=== PATIENT | male | born 1990 | race Caucasian/White ===

== ENCOUNTER 2019-08-28 18:40 | Emergency (ER) | payer OTHER, MEDICAID, SELFPAY ==
[2019-08-28 18:52] VITALS: BP 133/75; PULSE 76; RESP 18; TEMP 36.6; O2SAT 99; BMI 26.6
--- NOTE | 2019-08-28 18:59 | ED_ITS ---
HPI - Chest Pain General Chief Complaint: Chest Pain Stated Complaint: BODY HURTS PAIN SHOULDER BLADE CHEST Time Seen by Provider: 08/28/19 18:59 Mode of arrival: Ambulatory History of Present Illness HPI narrative: Otherwise healthy 29-year-old gentleman who presents with 3 days of increasing dramatic overall fatigue, left lower chest and left upper abdominal pain, loose stools for 3 days. Flushed feeling with myalgias but denies fevers, cough, dysuria. He has had no vomiting. He describes no skin rashes or acute neurologic symptoms. Review of Systems Review of Systems Narrative: Remainder of review of systems is otherwise unremarkable Exam Narrative Exam Narrative: General: Healthy appearing, in no acute distress. Able to give a complete and coherent history. Well-nourished well-developed HEENT: Moist mucous membranes, normal sclera with reactive pupils, Neck: No JVD, supple Respiratory: Lungs are clear to auscultation, no wheezing no rales no rhonchi. Full and symmetrical air movement Cardiac: Regular rate and rhythm no murmurs no bruits Abdomen: Soft, mildly tender in the left upper quadrant but no rebound or guarding good bowel tones, no flank pain Skin: Warm and dry, no rashes Neurologic: Grossly neurologically intact with no obvious asymmetries or abnormalities Extremities: No trauma, well perfused Psych: Cooperative, appropriate insight and affect Initial Vital Signs Initial Vital Signs: Vital Signs Temperature 97.9 F 08/28/19 18:52 Pulse Rate 76 08/28/19 18:52 Respiratory Rate 18 08/28/19 18:52 Blood Pressure 133/75 08/28/19 18:52 Pulse Oximetry 99 08/28/19 18:52 Course Orders Ordered: ED Orders 08/28/19 18:57 EKG-12 Lead Stat 08/28/19 20:03 XR chest 1V Stat 08/28/19 20:12 Complete Blood Count AUTO DIFF Stat Comprehensive Metabolic Panel Stat Lipase Stat Partial Thromboplastin Time Stat Prothrombin Time INR Stat Troponin & CK Cardiac Panel Stat Vital Signs Vital signs: Vital Signs - 8 hr 08/28/19 22:36 Temperature 98.0 F MDM - Chest Pain Medical Records Data Attestation: I reviewed the patient's medical records. Lab Data Attestation: I reviewed the patient's lab results. Result diagrams: 08/28/19 20:12 08/28/19 20:12 Labs: Lab Results 08/28/19 08/28/19 08/28/19 Range/Units 20:12 20:12 20:12 WBC 7.8 (4.5-11.0) X10^3/uL RBC 5.26 (4.5-5.9) X10^6/uL Hgb 15.3 (13.5-17.5) g/dL Hct 44.5 (41-53) % MCV 84.6 (80-100) fL MCH 29.1 (26-34) PG MCHC 34.4 (30-36) % RDW 12.9 (11.6-14.8) % Plt Count 264 (150-400) X10^3/uL Neut % (Auto) 54.9 (50-75) % Lymph % (Auto) 35.5 (25-40) % [place] % (Auto) 4.6 (3-14) % Eos % (Auto) 4.2 H (2-4) % Baso % (Auto) 0.8 (0-2) % Neut # (Auto) 4300 (8135-5231) /uL Lymph # (Auto) 2800 (1461-8718) /uL [place] # (Auto) 400 (0-900) /uL Eos # (Auto) 300 (0-450) /uL Baso # (Auto) 100 (0-100) /uL PT 11.2 (10.1-12.7) SECONDS INR 1.0 (0.9-1.3) APTT 31 (26.4-36.2) SECONDS Sodium 138 (137-145) mmol/L Potassium 4.2 (3.4-5.1) mmol/L Chloride 105 (98-107) mmol/L Carbon Dioxide 26 (22-32) mmol/L BUN 9 (9-20) mg/dL Creatinine 0.67 (0.66-1.25) mg/dL Estimated GFR > 60.0 (>60) mL/min BUN/Creatinine Ratio 13.4 (6-22) Glucose 93 (70-100) mg/dL Calcium 9.1 (8.4-10.2) mg/dL Total Bilirubin 0.2 (0.2-1.3) mg/dL AST 16 L (17-59) IU/L ALT 12 (<50) IU/L Alkaline Phosphatase 71 (38-126) U/L Total Creatine Kinase 58 (55-170) U/L CK-MB (CK-2) TNP CK-MB (CK-2) Rel Index TNP Troponin I < 0.012 (0.01-0.034) ng/mL Total Protein 7.2 (6.3-8.2) g/dL Albumin 4.3 (3.5-5.0) g/dL Globulin 2.9 (1.7-4.1) g/dL Albumin/Globulin Ratio 1.5 (1.0-2.8) Lipase 118 (23-300) U/L Imaging Data Chest x-ray: Radiologist's Impression: IMPRESSION: No acute cardiopulmonary pathology. Dictated by: Galdino Godinez M.D. on 08/28/2019 at 20:56 MDM Narrative Medical decision making narrative: Significant progressive fatigue with myalgias and now loose stools. No evidence of pneumonia, acute coronary syndrome or pancreatitis. Discussed testing for Covid but patient declines as ?it would make him more nervous. He is safe for home discharge at this time. Encouraged him to self quarantine until symptoms are improved. Encouraged him to return should he feel that he is getting worse. Discharge Plan Departure Patient Disposition: Home Clinical Impression: Abdominal pain Qualifiers: Abdominal location: left upper quadrant Qualified Code(s): R10.12 - Left upper quadrant pain Diarrhea Qualifiers: Diarrhea type: unspecified type Qualified Code(s): R19.7 - Diarrhea, unspecified Fatigue Qualifiers: Fatigue type: unspecified Qualified Code(s): R53.83 - Other fatigue Discharge Date/Time: 08/28/19 22:36 Instructions: DI for Abdominal Pain-Adult Activity Restrictions/Additional Instructions: Thank you for coming in today Your chest x-ray does not suggest an acute pneumonia. Your blood work and EKG do not suggest heart attack or heart attack like syndrome. Her blood work is nicely reassuring with no evidence of acute infection, no kidney or liver damage and no significant dehydration. With the significant fatigue and the diarrhea starting the possibility of coronavirus was discussed. You have declined testing at this time. I would still recommend self quarantine and following CDC recommendations listed below. If you find that you are getting worse, please feel free to return to the emergency room and I am happy to re-evaluate CDC Guidelines for home isolation: - Stay away from others - Limit contact with pets and animals: If you must care for a pet, wash your hands before and after interacting with them - Wear a mask if you are sick - Cover your mouth and nose with a tissue when you cough or sneeze. Dispose of tissues in a lined trash can and wash your hands immediately with soap and water for at least 20 seconds. If soap and water are not available, clean hands with alcohol-based hand utilization management rn that contains at least 60% alcohol. - Clean your hands often with soap and water for at least 20 seconds - Avoid touching your eyes, nose and mouth with unwashed hands - Do not share dishes, drinking glasses, cups, eating utensils, towels, or bedding with other people in your home. After using these items, wash them thoroughly with soap and water or put in the industrial engineering. - Clean high-touch surfaces in your isolation area (?sick room? and bathroom) every day; let a caregiver clean and disinfect high-touch surfaces in other areas of the home. Clean the area or item with soap and water or another detergent if it is dirty. Then, use a household disinfectant. Seek medical attention, but call first: - Seek medical care right away if your illness is worsening (for example, if you have difficulty breathing). - Call your doctor before going in: Before going to the doctor?s office or emergency room, call ahead and tell them your symptoms. They will tell you what to do. - If possible, put on a facemask before you enter the building. If you can?t put on a facemask, try to keep a safe distance from other people (at least 6 feet away). This will help protect the people in the office or waiting room. - Follow care instructions from your healthcare provider and local health department: Your local health authorities will give instructions on checking your symptoms and reporting information. Emergency warning signs for COVID-19: - Difficulty breathing or shortness of breath - Persistent pain or pressure in the chest - New confusion or inability to arouse - Bluish lips or face
[2019-08-28 19:26] VITALS: BP 122/70; PULSE 72; RESP 18; O2SAT 99
--- NOTE | 2019-08-28 20:03 | DI.RAD.S_ITS ---
PROCEDURE: XR CHEST 1V INDICATIONS: chest pain TECHNIQUE: One view of the chest was acquired. COMPARISON: None. FINDINGS: Surgical changes and devices: None. Lungs and pleura: Lungs are clear. No pleural effusions or pneumothorax. Mediastinum: Mediastinal contours appear normal. Heart size is normal. Bones and chest wall: No suspicious bony lesions. Overlying soft tissues appear unremarkable. IMPRESSION: No acute cardiopulmonary pathology. Dictated by: Galdino Godinez M.D. on 08/28/2019 at 20:56 Approved by: Galdino Godinez M.D. on 08/28/2019 at 20:56
[2019-08-28 20:23] LABS: Add Manual Diff / Slide Review NO; Basophils Absolute Auto 100 /uL (0-100); Basophils Percent Auto 0.8 % (0-2); Eosinophils Absolute Auto 300 /uL (0-450); Eosinophils Percent Auto 4.2 % (2-4); Hematocrit 44.5 % (41-53); Hemoglobin 15.3 g/dL (13.5-17.5); Lymphocytes Absolute Auto 2800 /uL (1100-4500); Lymphocytes Percent Auto 35.5 % (25-40); Mean Corpuscular HGB Conc 34.4 % (30-36); Mean Corpuscular Hemoglobin 29.1 PG (26-34); Mean Corpuscular Volume 84.6 fL (80-100); Monocytes Absolute Auto 400 /uL (0-900); Monocytes Percent Auto 4.6 % (3-14); Neutrophils Absolute Auto 4300 /uL (1500-7000); Neutrophils Percent Auto 54.9 % (50-75); Platelet Count 264 X10^3/uL (150-400); Red Blood Cell Count 5.26 X10^6/uL (4.5-5.9); Red Cell Distribution Width 12.9 % (11.6-14.8); White Blood Cell Count 7.8 X10^3/uL (4.5-11.0)
[2019-08-28 20:29] LABS: Prothrombin Time 11.2 SECONDS (10.1-12.7)
[2019-08-28 20:31] LABS: PTT Partial Thromboplastin Tim 31 SECONDS (26.4-36.2)
[2019-08-28 20:34] LABS: Alanine Aminotransferase 12 IU/L (<50); Albumin 4.3 g/dL (3.5-5.0); Albumin Globulin Ratio 1.5 (1.0-2.8); Alkaline Phosphatase 71 U/L (38-126); Aspartate Aminotransferase 16 IU/L (17-59); BUN Creatinine Ratio 13.4 (6-22); Bilirubin Total 0.2 mg/dL (0.2-1.3); Blood Urea Nitrogen 9 mg/dL (9-20); Calcium 9.1 mg/dL (8.4-10.2); Carbon Dioxide 26 mmol/L (22-32); Chloride 105 mmol/L (98-107); Creatine Kinase 58 U/L (55-170); Estimated Glomerular Filt Rate > 60.0 mL/min (>60); Globulin 2.9 g/dL (1.7-4.1); Glucose 93 mg/dL (70-100); HEMOLYSIS 20 (0-50); Lipase 118 U/L (23-300); Potassium 4.2 mmol/L (3.4-5.1); Sodium 138 mmol/L (137-145); Total Protein 7.2 g/dL (6.3-8.2)
[2019-08-28 20:46] LABS: Troponin I < 0.012 ng/mL (0.01-0.034)
[2019-08-28 20:58] VITALS: BP 120/73; PULSE 70; RESP 16; O2SAT 98
[2019-08-28 22:12] VITALS: BP 123/78; PULSE 74; RESP 17; O2SAT 98
[2019-08-28 22:36] VITALS: TEMP 36.7
== END 2019-08-28 22:36 | disposition home or self-care (01) ==
PROVIDERS: Emergency Provider Emergency Medicine
DX: R10.12 Left upper quadrant pain (principal); R07.9 Chest pain, unspecified; R19.7 Diarrhea, unspecified; R53.83 Other fatigue
CPT/HCPCS: 36415; 71045; 80053; 82550; 83690; 84484; 85025; 85610; 85730; 93005; 93010; 99284

== ENCOUNTER 2020-04-30 20:24 | Emergency (ER) | payer OTHER, MEDICAID, SELFPAY ==
[2020-04-30 20:25] VITALS: BP 146/81; PULSE 94; RESP 14; TEMP 37; O2SAT 99; BMI 27.9
--- NOTE | 2020-04-30 20:54 | ED.GENADULT ---
HPI - General Adult General Chief complaint: Upper Respiratory Symptoms Stated complaint: weakness, fatigue Time Seen by Provider: 04/30/20 20:28 Source: patient Mode of arrival: Ambulatory Limitations: no limitations History of Present Illness HPI narrative: Patient is a 29-year-old male who was recently seen for urinary issues in an outside facility here for evaluation of body aches and fatigue and cough. Has not tried anything for symptoms. Is not currently on any antibiotics. When he started having the cough today he thought that he should come in to be evaluated. Related Data Allergies Allergy/AdvReac Type Severity Reaction Status Date / Time aspirin Allergy Verified 04/30/20 20:32 ciprofloxacin [From Cipro] Allergy Verified 04/30/20 20:32 metronidazole [From Flagyl] Allergy Verified 04/30/20 20:32 Review of Systems Constitutional Constitutional: Reports fatigue, Denies fever(s) and Reports malaise Cardiovascular Cardiovascular: Denies chest pain and Denies dyspnea Respiratory Respiratory: Reports cough and Denies dyspnea Gastrointestinal Gastrointestinal: Denies abdominal pain, Denies nausea and Denies vomiting Genitourinary Genitourinary: Denies dysuria Genitourinary: Denies dysuria Integumentary/Breasts Skin/Breast: Denies rash Neurologic Neurologic: Denies behavioral changes Psychiatric Psychiatric: Denies behavioral changes Endocrine Endocrine: Reports fatigue Hematologic/Lymphatic On Anticoagulants: No Allergic/Immunologic Allergic/Immunologic: Denies urticaria Patient History Medical History Healthy adult Social History Smoking Status: Unknown if ever smoked Smoking Status: Unknown if ever smoked alcohol intake frequency: holidays/special occasions only Substance Use Type: does not use Exam Initial Vital Signs Initial Vital Signs: Vital Signs Temperature 98.6 F 04/30/20 20:25 Pulse Rate 94 H 04/30/20 20:25 Respiratory Rate 14 04/30/20 20:25 Blood Pressure 146/81 H 04/30/20 20:25 Pulse Oximetry 99 04/30/20 20:25 Const General: cooperative and comfortable Limitations: mental status not altered HENMT Head: normal to inspection and normocephalic Resp Effort & Inspection: normal respiratory effort Auscultation: clear to auscultation bilaterally Cardio Rate: regular rate Rhythm: regular rhythm GI Inspection: non-distended Skin Lesions: no lesions Rashes: no rashes Neuro General: patient alert, patient awake and patient oriented x3 Cognition: normal cognition Speech: speech normal Extrem General: capillary refill normal Psych Appearance: grossly normal and well kempt Course Orders Ordered: ED Orders 04/30/20 20:37 COVID19 Stat Influenza A & B (PCR) Stat Vital Signs Vital signs: Vital Signs - 8 hr 04/30/20 20:25 Temperature 98.6 F Pulse Rate 94 H Respiratory Rate 14 Blood Pressure 146/81 H Pulse Oximetry 99 Medical Decision Making Medical Records Medical records reviewed: Yes I reviewed the patient's medical records. Lab Data Lab results reviewed: Yes I reviewed the patient's lab results. Labs: Lab Results 04/30/20 04/30/20 Range/Units 20:37 20:37 SARS-CoV-2 (PCR) Negative (Negative) Influenza A (RT-PCR) Flu a negative (NEGATIVE) Influenza B (RT-PCR) Flu b negative (NEGATIVE) MDM Narrative Medical decision making narrative: Flu and COVID-19 both negative. Patient's lungs are clear. He is afebrile. No abdominal tenderness. No rashes. No indication for antibiotics. He can take Tylenol/ibuprofen for any body aches. He is given return precautions and follow-up instructions. He expressed understanding and agreement. Discharge Plan Departure Patient Disposition: Home Clinical Impression: Generalized body aches Activity Restrictions/Additional Instructions: Recommend that you contact your primary provider for follow-up. You can take Tylenol and/or ibuprofen for any body aches. Return to the emergency department for any new or worsening symptoms
[2020-04-30 21:18] LABS: COVID19 -Nasal RAPID Negative (Negative)
[2020-04-30 21:21] LABS: Influenza A - CEPHEID Flu A NEGATIVE (NEGATIVE); Influenza B - CEPHEID Flu B NEGATIVE (NEGATIVE)
== END 2020-04-30 21:57 | disposition home or self-care (01) ==
PROVIDERS: Emergency Provider Emergency Medicine
DX: R52 Pain, unspecified (principal); R05 Cough; R53.83 Other fatigue; Z79.82 Long term (current) use of aspirin; Z20.822 Contact with and (suspected) exposure to COVID-19
CPT/HCPCS: 87502; 87635; 99281; 99282; C9803

== ENCOUNTER 2020-09-07 17:51 | Emergency (ER) | payer OTHER, MEDICAID, SELFPAY ==
[2020-09-07 18:32] VITALS: BP 129/72; PULSE 86; RESP 18; TEMP 37.3; O2SAT 99; BMI 29.4
[2020-09-07 19:00] LABS: COVID19 -Nasal RAPID Negative (Negative)
--- NOTE | 2020-09-07 19:34 | ED.URI ---
HPI - URI/Sore Throat General Chief Complaint: Fever Stated Complaint: sore throat, fatigue Time Seen by Provider: 09/07/20 18:15 Source: patient Mode of arrival: Ambulatory Limitations: no limitations History of Present Illness HPI Narrative: 30-year-old otherwise healthy gentleman presents with minor scratchy throat and extreme fatigue requesting COVID testing. He accompanies his 8-year-old son who has similar symptoms that are a bit worse. He denies any change to taste or smell. No cough, dyspnea, palpitations, abdominal pain, vomiting or diarrhea Related Data Allergies Allergy/AdvReac Type Severity Reaction Status Date / Time aspirin Allergy Verified 09/07/20 18:32 ciprofloxacin [From Cipro] Allergy Verified 09/07/20 18:32 metronidazole [From Flagyl] Allergy Verified 09/07/20 18:32 Review of Systems Review of Systems Narrative: Remainder of complete review of systems is otherwise unremarkable except for that included in the HPI. Patient History Medical History Healthy adult Social History Smoking Status: Current every day smoker Smoking Status: Current every day smoker alcohol intake frequency: holidays/special occasions only Substance Use Type: does not use Exam Narrative Exam Narrative: General: Alert appropriate in no acute distress HEENT: No scleral injection, no cervical adenopathy Respiratory: Able to speak in full sentences, no obvious respiratory distress, no wheezing or rhonchi on auscultation Cardiac: Regular rate and rhythm Skin: No obvious rashes, warm and dry Neurologic: Grossly intact no obvious asymmetries or abnormalities Psych: appropriate insight and affect, cooperative Initial Vital Signs Initial Vital Signs: Vital Signs Temperature 99.2 F 09/07/20 18:32 Pulse Rate 86 09/07/20 18:32 Respiratory Rate 18 09/07/20 18:32 Blood Pressure 129/72 09/07/20 18:32 Pulse Oximetry 99 09/07/20 18:32 Course Orders Ordered: ED Orders 09/07/20 18:20 COVID19 -Nasal swab/Pre-Proc Stat Vital Signs Vital signs: Vital Signs - 8 hr 09/07/20 18:32 Temperature 99.2 F Pulse Rate 86 Respiratory Rate 18 Blood Pressure 129/72 Pulse Oximetry 99 MDM - URI/Sore Throat Medical Records Attestation: I reviewed the patient's medical records. Lab Data Labs: Lab Results 09/07/20 Range/Units 18:20 SARS-CoV-2 (PCR) Negative (Negative) MDM Narrative Medical decision making narrative: 30-year-old gentleman with a day of fatigue and mild scratchy throat. He does have a history of seasonal allergies and notes that that may be part of the issue. His COVID testing is negative today. Reassurance is given and he is safe for home discharge Discharge Plan Departure Patient Disposition: Home Clinical Impression: Seasonal allergies Upper respiratory infection Qualifiers: URI type: unspecified viral URI Qualified Code(s): J06.9 - Acute upper respiratory infection, unspecified Instructions: DI for Viral Upper Respiratory Infection -- Adult Activity Restrictions/Additional Instructions: Thank you for coming in today You do not have COVID You may have an upper respiratory infection or your symptoms may be due to seasonal allergies. Either way, your symptoms should improve within the next couple of days. For nausea and vomiting you can use the Zofran/ondansetron tablets that you were sent home with. You feel that you are getting worse please return to the ER. I hope you feel alisia
== END 2020-09-07 19:43 | disposition home or self-care (01) ==
PROVIDERS: Emergency Provider Emergency Medicine
DX: J06.9 Acute upper respiratory infection, unspecified (principal); J30.2 Other seasonal allergic rhinitis; Z20.822 Contact with and (suspected) exposure to COVID-19
CPT/HCPCS: 87635; 99281; 99282; C9803

== ENCOUNTER 2020-10-02 18:24 | Emergency (ER) | payer OTHER, MEDICAID, SELFPAY ==
[2020-10-02 18:54] VITALS: BP 133/75; PULSE 77; RESP 18; TEMP 36.9; O2SAT 100; BMI 30.1
[2020-10-02 19:35] LABS: Bacteria Urine None Seen; RBC Urine None Seen (0-5/HPF); WBC Urine None Seen (0-5/HPF)
[2020-10-02 19:45] LABS: Culture Indicated Urine Cult Not Indicated; Urine Comments Microscopic Normal
--- NOTE | 2020-10-02 21:28 | ED.GENADULT ---
HPI - General Adult General Chief complaint: Urogenital-Male Stated complaint: bladder infection Time Seen by Provider: 10/02/20 21:17 Source: patient and family Mode of arrival: Ambulatory History of Present Illness HPI narrative: Patient is a 30-year-old male here for evaluation of what he thinks is a bladder infection. He states that over the weekend he had generalized body aches. His symptoms seem to have now focused in to his lower abdomen. It does burn when he finishes urinating. He states he has had a kidney stone in the past this does not feel like a kidney stone. Has no back pain. No fevers. No change in bowel habits. Has never had a sexually transmitted infection is not concerned about that currently. He has never had a urinary tract infection in the past. Related Data Allergies Allergy/AdvReac Type Severity Reaction Status Date / Time aspirin Allergy Verified 09/07/20 18:32 ciprofloxacin [From Cipro] Allergy Verified 09/07/20 18:32 metronidazole [From Flagyl] Allergy Verified 09/07/20 18:32 Review of Systems Constitutional Constitutional: Denies fever(s) Gastrointestinal Gastrointestinal: Reports abdominal pain, Denies change in bowel habits, Denies nausea and Denies vomiting Genitourinary Genitourinary: Denies hematuria, Denies difficulty urinating, Reports dysuria, Reports dysuria, Denies testicular pain, Denies urinary frequency, Denies urinary hesitancy and Denies urinary urgency Musculoskeletal Musculoskeletal: Reports system reviewed and no additional complaints, except as documented Integumentary/Breasts Skin/Breast: Denies rash Neurologic Neurologic: Reports system reviewed and no additional complaints, except as documented Hematologic/Lymphatic On Anticoagulants: No Patient History Medical History Healthy adult Social History Smoking Status: Current every day smoker Smoking Status: Current every day smoker alcohol intake frequency: holidays/special occasions only Substance Use Type: does not use Exam Initial Vital Signs Initial Vital Signs: Vital Signs Temperature 98.5 F 10/02/20 18:54 Pulse Rate 77 10/02/20 18:54 Respiratory Rate 18 10/02/20 18:54 Blood Pressure 133/75 10/02/20 18:54 Pulse Oximetry 100 10/02/20 18:54 Const General: cooperative and healthy appearing [facility] Head: normal to inspection Resp Effort & Inspection: normal respiratory effort Cardio Rate: regular rate GI Inspection: normal to inspection Palpation: soft and tender (Slightly tender midline lower abdomen) General: bladder normal to palpation Back/Spine/Pelvis Back: No CVA tenderness Skin General: no rashes or lesions noted Neuro General: patient alert, patient awake and patient oriented x3 Extrem General: normal to inspection Psych Appearance: grossly normal Course Orders Ordered: ED Orders 10/02/20 19:34 Urine Microscopic Stat 10/02/20 21:32 COVID19 -Nasal swab/Pre-Proc Stat 10/02/20 22:00 Basic Metabolic Panel Stat Complete Blood Count AUTO DIFF Stat Vital Signs Vital signs: Vital Signs - 8 hr 10/02/20 22:47 Pulse Rate 73 Respiratory Rate 14 Blood Pressure 120/65 Pulse Oximetry 97 Medical Decision Making Lab Data Lab results reviewed: Yes I reviewed the patient's lab results. Result diagrams: 10/02/20 22:00 10/02/20 22:00 Labs: Lab Results 10/02/20 10/02/20 10/02/20 Range/Units 19:34 21:32 22:00 WBC 8.2 (4.5-11.0) X10^3/uL RBC 5.33 (4.5-5.9) X10^6/uL Hgb 14.9 (13.5-17.5) g/dL Hct 44.9 (41-53) % MCV 84.3 (80-100) fL MCH 27.9 (26-34) PG MCHC 33.1 (30-36) % RDW 13.6 (11.6-14.8) % Plt Count 272 (150-400) X10^3/uL Neut % (Auto) 58.8 (50-75) % Lymph % (Auto) 32.7 (25-40) % [place] % (Auto) 5.4 (3-14) % Eos % (Auto) 2.4 (2-4) % Baso % (Auto) 0.7 (0-2) % Neut # (Auto) 4800 (4717-5578) /uL Lymph # (Auto) 2700 (7936-4827) /uL [place] # (Auto) 400 (0-900) /uL Eos # (Auto) 200 (0-450) /uL Baso # (Auto) 100 (0-100) /uL Sodium (137-145) mmol/L Potassium (3.4-5.1) mmol/L Chloride (98-107) mmol/L Carbon Dioxide (22-32) mmol/L BUN (9-20) mg/dL Creatinine (0.66-1.25) mg/dL Estimated GFR (>60) mL/min BUN/Creatinine Ratio (6-22) Glucose (70-100) mg/dL Calcium (8.4-10.2) mg/dL Urine RBC None seen (0-5/HPF) Urine WBC None seen (0-5/HPF) Urine Bacteria None seen (None) Ur Culture Indicated? Cult not indicated Micro UA Comment Microscopic normal SARS-CoV-2 (PCR) Negative (Negative) 10/02/20 Range/Units 22:00 WBC (4.5-11.0) X10^3/uL RBC (4.5-5.9) X10^6/uL Hgb (13.5-17.5) g/dL Hct (41-53) % MCV (80-100) fL MCH (26-34) PG MCHC (30-36) % RDW (11.6-14.8) % Plt Count (150-400) X10^3/uL Neut % (Auto) (50-75) % Lymph % (Auto) (25-40) % [place] % (Auto) (3-14) % Eos % (Auto) (2-4) % Baso % (Auto) (0-2) % Neut # (Auto) (5168-2808) /uL Lymph # (Auto) (2198-6886) /uL [place] # (Auto) (0-900) /uL Eos # (Auto) (0-450) /uL Baso # (Auto) (0-100) /uL Sodium 139 (137-145) mmol/L Potassium 3.9 (3.4-5.1) mmol/L Chloride 105 (98-107) mmol/L Carbon Dioxide 27 (22-32) mmol/L BUN 10 (9-20) mg/dL Creatinine 0.73 (0.66-1.25) mg/dL Estimated GFR > 60.0 (>60) mL/min BUN/Creatinine Ratio 13.7 (6-22) Glucose 88 (70-100) mg/dL Calcium 8.9 (8.4-10.2) mg/dL Urine RBC (0-5/HPF) Urine WBC (0-5/HPF) Urine Bacteria (None) Ur Culture Indicated? Micro UA Comment SARS-CoV-2 (PCR) (Negative) Urine Dip Bedside Urine Glucose Negative Bedside Urine Bilirubin - Negative Bedside Urine Ketone - Negative Urine Specific [place] 1.030 Bedside Urine Occult Blood +/- Bedside Urine pH 6 Bedside Urine Protein - Negative Bedside Urine Urobilinogen - Negative Bedside Urine Nitrite - Negative Bedside Urine Leukocytes - Negative Esterase Point of care testing: Urine Dip Bedside Urine Glucose Negative Bedside Urine Bilirubin - Negative Bedside Urine Ketone - Negative Urine Specific [place] 1.030 Bedside Urine Occult Blood +/- Bedside Urine pH 6 Bedside Urine Protein - Negative Bedside Urine Urobilinogen - Negative Bedside Urine Nitrite - Negative Bedside Urine Leukocytes - Negative Esterase MDM Narrative Medical decision making narrative: Urinalysis today is not consistent with a urinary tract infection. Labs to include renal function are unremarkable. He is afebrile. Has a very benign abdominal exam. I do have low suspicion for pyelonephritis. Low suspicion for appendicitis. Low suspicion for gallbladder pathology given the location of his discomfort. He does have blood in his urine. Informed her that he needed to talk with his primary doctor regarding this as he is going to need follow-up to make sure that the blood clears. No indication for antibiotics. He was given return precautions. He expressed understanding and agreement. Discharge Plan Departure Patient Disposition: Home Clinical Impression: Hematuria, Abdominal pain Instructions: DI for Abdominal Pain-Adult, DI for Hematuria Activity Restrictions/Additional Instructions: I recommend that you contact your primary doctor as you do need follow-up to make sure that the blood in your urine is resolving. Return to the emergency department for any new or worsening symptoms Referrals: Mateo Carballo MD [Primary Care Provider] -
[2020-10-02 21:59] LABS: COVID19 -Nasal RAPID Negative (Negative)
[2020-10-02 22:09] LABS: Add Manual Diff / Slide Review NO; Basophils Absolute Auto 100 /uL (0-100); Basophils Percent Auto 0.7 % (0-2); Eosinophils Absolute Auto 200 /uL (0-450); Eosinophils Percent Auto 2.4 % (2-4); Hematocrit 44.9 % (41-53); Hemoglobin 14.9 g/dL (13.5-17.5); Lymphocytes Absolute Auto 2700 /uL (1100-4500); Lymphocytes Percent Auto 32.7 % (25-40); Mean Corpuscular HGB Conc 33.1 % (30-36); Mean Corpuscular Hemoglobin 27.9 PG (26-34); Mean Corpuscular Volume 84.3 fL (80-100); Monocytes Absolute Auto 400 /uL (0-900); Monocytes Percent Auto 5.4 % (3-14); Neutrophils Absolute Auto 4800 /uL (1500-7000); Neutrophils Percent Auto 58.8 % (50-75); Platelet Count 272 X10^3/uL (150-400); Red Blood Cell Count 5.33 X10^6/uL (4.5-5.9); Red Cell Distribution Width 13.6 % (11.6-14.8); White Blood Cell Count 8.2 X10^3/uL (4.5-11.0)
[2020-10-02 22:23] LABS: BUN Creatinine Ratio 13.7 (6-22); Blood Urea Nitrogen 10 mg/dL (9-20); Calcium 8.9 mg/dL (8.4-10.2); Carbon Dioxide 27 mmol/L (22-32); Chloride 105 mmol/L (98-107); Estimated Glomerular Filt Rate > 60.0 mL/min (>60); Glucose 88 mg/dL (70-100); HEMOLYSIS < 15 (0-50); Potassium 3.9 mmol/L (3.4-5.1); Sodium 139 mmol/L (137-145)
[2020-10-02 22:47] VITALS: BP 120/65; PULSE 73; RESP 14; O2SAT 97
== END 2020-10-02 22:50 | disposition home or self-care (01) ==
PROVIDERS: Emergency Medicine; Emergency Provider Emergency Medicine; PCP Internal Medicine Geriatric Medicine
DX: R31.9 Hematuria, unspecified (principal); R30.0 Dysuria; R10.30 Lower abdominal pain, unspecified; Z20.822 Contact with and (suspected) exposure to COVID-19
CPT/HCPCS: 36415; 80048; 81003; 81015; 85025; 87635; 99283; C9803

== ENCOUNTER 2020-11-03 16:02 | Emergency (ER) | payer OTHER, MEDICAID, SELFPAY ==
[2020-11-03 16:07] VITALS: BP 134/85; PULSE 81; RESP 18; TEMP 36.5; O2SAT 98; BMI 28.7
[2020-11-03 16:41] LABS: Add Manual Diff / Slide Review NO; Basophils Absolute Auto 0 /uL (0-100); Basophils Percent Auto 0.4 % (0-2); Eosinophils Absolute Auto 200 /uL (0-450); Eosinophils Percent Auto 2.3 % (2-4); Hematocrit 46.6 % (41-53); Hemoglobin 15.5 g/dL (13.5-17.5); Lymphocytes Absolute Auto 2400 /uL (1100-4500); Lymphocytes Percent Auto 28.2 % (25-40); Mean Corpuscular HGB Conc 33.2 % (30-36); Mean Corpuscular Volume 84.5 fL (80-100); Monocytes Absolute Auto 500 /uL (0-900); Monocytes Percent Auto 5.9 % (3-14); Neutrophils Absolute Auto 5500 /uL (1500-7000); Neutrophils Percent Auto 63.2 % (50-75); Platelet Count 297 X10^3/uL (150-400); Red Blood Cell Count 5.51 X10^6/uL (4.5-5.9); Red Cell Distribution Width 13.5 % (11.6-14.8); White Blood Cell Count 8.6 X10^3/uL (4.5-11.0)
[2020-11-03 16:49] LABS: COVID19 -Nasal RAPID Negative (Negative)
[2020-11-03 16:54] LABS: Alanine Aminotransferase 18 IU/L (<50); Albumin 4.5 g/dL (3.5-5.0); Albumin Globulin Ratio 1.6 (1.0-2.8); Alkaline Phosphatase 82 U/L (38-126); Aspartate Aminotransferase 17 IU/L (17-59); BUN Creatinine Ratio 15.1 (6-22); Bilirubin Total 0.3 mg/dL (0.2-1.3); Blood Urea Nitrogen 13 mg/dL (9-20); Calcium 9.3 mg/dL (8.4-10.2); Carbon Dioxide 25 mmol/L (22-32); Chloride 105 mmol/L (98-107); Estimated Glomerular Filt Rate > 60.0 mL/min (>60); Globulin 2.9 g/dL (1.7-4.1); Glucose 97 mg/dL (70-100); HEMOLYSIS < 15 (0-50); Lipase 98 U/L (23-300); Potassium 4.4 mmol/L (3.4-5.1); Sodium 138 mmol/L (137-145); Total Protein 7.4 g/dL (6.3-8.2)
--- NOTE | 2020-11-03 18:05 | ED_ITS ---
HPI - Abdominal Pain General Chief Complaint: Abdominal Pain Stated Complaint: DIARRHEA HEADACHE UNABLE TO EAT STOMACH CRAMPING Time Seen by Provider: 11/03/20 18:02 Source: patient Mode of arrival: Ambulatory Limitations: no limitations Related Data Allergies Allergy/AdvReac Type Severity Reaction Status Date / Time aspirin Allergy Verified 09/07/20 18:32 ciprofloxacin [From Cipro] AdvReac Intermediate Anxiety Verified 11/03/20 16:07 metronidazole [From Flagyl] AdvReac Intermediate Anxiety Verified 11/03/20 16:07 Patient History Medical History Healthy adult Social History Smoking Status: Current every day smoker Smoking Status: Current every day smoker alcohol intake frequency: holidays/special occasions only Substance Use Type: does not use Exam Initial Vital Signs Initial Vital Signs: Vital Signs Temperature 97.7 F 11/03/20 16:07 Pulse Rate 81 11/03/20 16:07 Respiratory Rate 18 11/03/20 16:07 Blood Pressure 134/85 11/03/20 16:07 Pulse Oximetry 98 11/03/20 16:07 Course Orders Ordered: ED Orders 11/03/20 16:18 COVID19 -Nasal swab/Pre-Proc Stat Complete Blood Count AUTO DIFF Stat Comprehensive Metabolic Panel Stat Lipase Stat Vital Signs Vital signs: Vital Signs - 8 hr 11/03/20 16:07 Temperature 97.7 F Pulse Rate 81 Respiratory Rate 18 Blood Pressure 134/85 Pulse Oximetry 98 MDM - Abdominal Pain Lab Data Result diagrams: 11/03/20 16:18 11/03/20 16:18 Labs: Lab Results 11/03/20 11/03/20 11/03/20 Range/Units 16:18 16:18 16:18 WBC 8.6 (4.5-11.0) X10^3/uL RBC 5.51 (4.5-5.9) X10^6/uL Hgb 15.5 (13.5-17.5) g/dL Hct 46.6 (41-53) % MCV 84.5 (80-100) fL MCH 28.0 (26-34) PG MCHC 33.2 (30-36) % RDW 13.5 (11.6-14.8) % Plt Count 297 (150-400) X10^3/uL Neut % (Auto) 63.2 (50-75) % Lymph % (Auto) 28.2 (25-40) % Garrard % (Auto) 5.9 (3-14) % Eos % (Auto) 2.3 (2-4) % Baso % (Auto) 0.4 (0-2) % Neut # (Auto) 5500 (2045-1124) /uL Lymph # (Auto) 2400 (7261-5786) /uL Garrard # (Auto) 500 (0-900) /uL Eos # (Auto) 200 (0-450) /uL Baso # (Auto) 0 (0-100) /uL Sodium 138 (137-145) mmol/L Potassium 4.4 (3.4-5.1) mmol/L Chloride 105 (98-107) mmol/L Carbon Dioxide 25 (22-32) mmol/L BUN 13 (9-20) mg/dL Creatinine 0.86 (0.66-1.25) mg/dL Estimated GFR > 60.0 (>60) mL/min BUN/Creatinine Ratio 15.1 (6-22) Glucose 97 (70-100) mg/dL Calcium 9.3 (8.4-10.2) mg/dL Total Bilirubin 0.3 (0.2-1.3) mg/dL AST 17 (17-59) IU/L ALT 18 (<50) IU/L Alkaline Phosphatase 82 (38-126) U/L Total Protein 7.4 (6.3-8.2) g/dL Albumin 4.5 (3.5-5.0) g/dL Globulin 2.9 (1.7-4.1) g/dL Albumin/Globulin Ratio 1.6 (1.0-2.8) Lipase 98 (23-300) U/L SARS-CoV-2 (PCR) Negative (Negative) Discharge Plan Departure Patient Disposition: Left Without Being Seen Clinical Impression: Patient left after triage
--- NOTE | 2020-11-04 04:22 | ED_ITS ---
HPI - Abdominal Pain General Chief Complaint: Abdominal Pain Stated Complaint: DIARRHEA HEADACHE UNABLE TO EAT STOMACH CRAMPING Time Seen by Provider: 11/03/20 18:02 Source: patient Mode of arrival: Ambulatory Limitations: no limitations Related Data Allergies Allergy/AdvReac Type Severity Reaction Status Date / Time aspirin Allergy Verified 09/07/20 18:32 ciprofloxacin [From Cipro] AdvReac Intermediate Anxiety Verified 11/03/20 16:07 metronidazole [From Flagyl] AdvReac Intermediate Anxiety Verified 11/03/20 16:07 Patient History Medical History Healthy adult Social History Smoking Status: Current every day smoker Smoking Status: Current every day smoker alcohol intake frequency: holidays/special occasions only Substance Use Type: does not use Exam Initial Vital Signs Initial Vital Signs: Vital Signs Temperature 97.7 F 11/03/20 16:07 Pulse Rate 81 11/03/20 16:07 Respiratory Rate 18 11/03/20 16:07 Blood Pressure 134/85 11/03/20 16:07 Pulse Oximetry 98 11/03/20 16:07 MDM - Abdominal Pain Lab Data Result diagrams: 11/03/20 16:18 11/03/20 16:18 Labs: Lab Results 11/03/20 11/03/20 11/03/20 Range/Units 16:18 16:18 16:18 WBC 8.6 (4.5-11.0) X10^3/uL RBC 5.51 (4.5-5.9) X10^6/uL Hgb 15.5 (13.5-17.5) g/dL Hct 46.6 (41-53) % MCV 84.5 (80-100) fL MCH 28.0 (26-34) PG MCHC 33.2 (30-36) % RDW 13.5 (11.6-14.8) % Plt Count 297 (150-400) X10^3/uL Neut % (Auto) 63.2 (50-75) % Lymph % (Auto) 28.2 (25-40) % Merrick % (Auto) 5.9 (3-14) % Eos % (Auto) 2.3 (2-4) % Baso % (Auto) 0.4 (0-2) % Neut # (Auto) 5500 (1514-9500) /uL Lymph # (Auto) 2400 (7374-2438) /uL Merrick # (Auto) 500 (0-900) /uL Eos # (Auto) 200 (0-450) /uL Baso # (Auto) 0 (0-100) /uL Sodium 138 (137-145) mmol/L Potassium 4.4 (3.4-5.1) mmol/L Chloride 105 (98-107) mmol/L Carbon Dioxide 25 (22-32) mmol/L BUN 13 (9-20) mg/dL Creatinine 0.86 (0.66-1.25) mg/dL Estimated GFR > 60.0 (>60) mL/min BUN/Creatinine Ratio 15.1 (6-22) Glucose 97 (70-100) mg/dL Calcium 9.3 (8.4-10.2) mg/dL Total Bilirubin 0.3 (0.2-1.3) mg/dL AST 17 (17-59) IU/L ALT 18 (<50) IU/L Alkaline Phosphatase 82 (38-126) U/L Total Protein 7.4 (6.3-8.2) g/dL Albumin 4.5 (3.5-5.0) g/dL Globulin 2.9 (1.7-4.1) g/dL Albumin/Globulin Ratio 1.6 (1.0-2.8) Lipase 98 (23-300) U/L SARS-CoV-2 (PCR) Negative (Negative) Discharge Plan Departure Patient Disposition: Left Without Being Seen Clinical Impression: Patient left after triage
== END 2020-11-03 19:01 | disposition left against medical advice (07) ==
PROVIDERS: Emergency Medicine; Emergency Provider Emergency Medicine; PCP Internal Medicine Geriatric Medicine
DX: R11.2 Nausea with vomiting, unspecified (principal); R19.7 Diarrhea, unspecified; Z20.822 Contact with and (suspected) exposure to COVID-19
CPT/HCPCS: 36415; 80053; 83690; 85025; 87635; 99283; C9803

== ENCOUNTER 2022-11-23 15:39 | Emergency (ER) | payer OTHER, MEDICAID, SELFPAY ==
[2022-11-23 15:49] VITALS: BP 128/74; PULSE 82; RESP 16; TEMP 36.9; O2SAT 99; BMI 30.8
[2022-11-23 17:32] LABS: Add Manual Diff / Slide Review NO; Basophils Absolute Auto 0 /uL (0-100); Basophils Percent Auto 0.5 % (0-2); Eosinophils Absolute Auto 200 /uL (0-450); Eosinophils Percent Auto 1.6 % (2-4); Hemoglobin 15.7 g/dL (13.5-17.5); Lymphocytes Absolute Auto 2100 /uL (1100-4500); Lymphocytes Percent Auto 21.7 % (25-40); Mean Corpuscular HGB Conc 34.3 % (30-36); Mean Corpuscular Hemoglobin 28.3 PG (26-34); Mean Corpuscular Volume 82.7 fL (80-100); Monocytes Absolute Auto 500 /uL (0-900); Monocytes Percent Auto 5.4 % (3-14); Neutrophils Absolute Auto 6800 /uL (1500-7000); Neutrophils Percent Auto 70.8 % (50-75); Platelet Count 296 X10^3/uL (150-400); Red Blood Cell Count 5.56 X10^6/uL (4.5-5.9); Red Cell Distribution Width 13.4 % (11.6-14.8); White Blood Cell Count 9.6 X10^3/uL (4.5-11.0)
[2022-11-23 17:34] LABS: Alanine Aminotransferase 21 IU/L (<50); Albumin 4.5 g/dL (3.5-5.0); Albumin Globulin Ratio 1.4 (1.0-2.8); Alkaline Phosphatase 88 U/L (38-126); Aspartate Aminotransferase 21 IU/L (17-59); BUN Creatinine Ratio 15.3 (6-22); Bilirubin Total 0.3 mg/dL (0.2-1.3); Blood Urea Nitrogen 11 mg/dL (9-20); Carbon Dioxide 24 mmol/L (22-32); Chloride 105 mmol/L (98-107); Estimated Glomerular Filt Rate > 60 mL/min (>60); Globulin 3.3 g/dL (1.7-4.1); Glucose 94 mg/dL (70-100); HEMOLYSIS 19 (0-50); Lipase 119 U/L (23-300); Potassium 4.2 mmol/L (3.4-5.1); Sodium 137 mmol/L (137-145); Total Protein 7.8 g/dL (6.3-8.2)
== END 2022-11-23 18:37 | disposition left against medical advice (07) ==
PROVIDERS: Emergency Medicine; Emergency Provider Emergency Medicine; PCP Internal Medicine Geriatric Medicine
DX: R10.9 Unspecified abdominal pain (principal)
CPT/HCPCS: 80053; 83690; 85025; 93005; 99281

== ENCOUNTER 2022-12-21 03:58 | Emergency (ER) | payer OTHER, MEDICAID, SELFPAY ==
[2022-12-21] VITALS (11 sets, daily range): BP systolic 122–145; BP diastolic 67–83; PULSE 78–110; RESP 7–21; TEMP 36.6; O2SAT 96–100; BMI 30.8
--- NOTE | 2022-12-21 04:09 | DI.RAD.S_ITS ---
PROCEDURE: XR CHEST 1V INDICATIONS: Chest pain. TECHNIQUE: One view of the chest was acquired. COMPARISON: [facility], , XR CHEST 1V, 08/28/2019, 20:49. FINDINGS: Surgical changes and devices: None. Lungs and pleura: Lungs are clear. No pleural effusions or pneumothorax. Mediastinum: Mediastinal contours appear normal. Heart size is normal. Bones and chest wall: No suspicious bony lesions. Overlying soft tissues appear unremarkable. IMPRESSION: Portable chest within normal limits for age. Comment: Final report is concordant with preliminary interpretation provided by [facility]. Dictated by: Rob Lackey M.D. on 12/21/2022 at 8:54 Approved by: Rob Lackey M.D. on 12/21/2022 at 8:57
--- NOTE | 2022-12-21 04:19 | ED_ITS ---
HPI - Chest Pain <Terri Valdivia MD - Last Filed: 12/21/22 07:53> General Chief Complaint: Chest Pain Stated Complaint: chest pain Time Seen by Provider: 12/21/22 04:00 Source: patient Mode of arrival: Ambulatory Limitations: no limitations History of Present Illness HPI narrative: Otherwise healthy 32-year-old gentleman who presents complaining of epigastric and chest pain that awoke him from sleep at 3:30 a.m. this morning. He initially had some epigastric pain and he sat up noted that he was significantly lightheaded, acutely dizzy diaphoretic short of breath. When he laid back he then noticed he was having substernal chest pain radiating up to the supra clavicular fossa bilaterally. With all symptoms taken together he described the pain as a 5/10 he currently is at a 3/10. 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 to 11:00 p.m. and was quite fatigued. He does not complain of recent exertional dyspnea or exertional pain of any kind. He has not had any vomiting diarrhea fevers or recent upper respiratory or viral infections. He smokes tobacco and uses no other recreational drugs at all. He does not describe a significant family history of cardiac disease Related Data Allergies Allergy/AdvReac Type Severity Reaction Status Date / Time aspirin Allergy Verified 12/21/22 07:54 ciprofloxacin [From Cipro] AdvReac Intermediate Anxiety Verified 12/21/22 07:54 metronidazole [From Flagyl] AdvReac Intermediate Anxiety Verified 12/21/22 07:54 Review of Systems <Terri Valdivia MD - Last Filed: 12/21/22 07:53> Review of Systems Narrative: Pertinent positive and negative findings as per HPI Patient History <Terri Valdivia MD - Last Filed: 12/21/22 07:53> Medical History (Updated 12/21/22 @ 07:54 by Kassidy Grider) Healthy adult Smoking Status: Current every day smoker alcohol intake frequency: holidays/special occasions only Substance Use Type: does not use Exam <Terri Valdivia MD - Last Filed: 12/21/22 07:53> Initial Vital Signs Initial Vital Signs: Vital Signs Pulse Rate 104 H 12/21/22 04:02 Respiratory Rate 16 12/21/22 04:02 Pulse Oximetry 98 12/21/22 04:02 General: Pale slightly diaphoretic appears uncomfortable but able to give a complete and focused history. HEENT: Dry mucous membranes, normal sclera with reactive pupils, Neck: No JVD, supple Respiratory: Lungs are clear to auscultation, no wheezing no rales no rhonchi. Full and symmetrical air movement Cardiac: Mild tachycardia but otherwise Regular rate and rhythm no murmurs no bruits Abdomen: Soft, nontender, good bowel tones, no flank pain Skin: Slightly pale, good peripheral perfusion,, no rashes Neurologic: Grossly neurologically intact with no obvious asymmetries or abnormalities Extremities: No trauma, well perfused Psych: Cooperative, appropriate insight and affect <Sha Dyson DO - Last Filed: 12/21/22 08:00> Initial Vital Signs Initial Vital Signs: Vital Signs Pulse Rate 104 H 12/21/22 04:02 Respiratory Rate 16 12/21/22 04:02 Pulse Oximetry 98 12/21/22 04:02 Course <Terri Valdivia MD - Last Filed: 12/21/22 07:53> Orders Ordered: ED Orders 12/21/22 04:07 Complete Blood Count AUTO DIFF Stat Comprehensive Metabolic Panel Stat Lipase Stat Troponin & CK Cardiac Panel Stat 12/21/22 04:09 XR chest 1V Stat EKG-12 Lead Stat 12/21/22 06:00 Trop I [Troponin I] Stat EKG-12 Lead Stat 12/21/22 09:00 Troponin & CK Cardiac Panel Stat Nitroglycerin (Nitroglycerin 0.4 Mg Sl Tab) 0.4 mg SL [id number] PRN PRN Reason: Chest Pain Vital Signs Vital signs: Vital Signs - 8 hr 12/21/22 04:04 12/21/22 04:02 12/21/22 04:03 Temperature 97.8 F Pulse Rate 104 H 104 H Respiratory Rate 19 16 Blood Pressure 145/83 H 145/83 H Pulse Oximetry 100 98 Oxygen Delivery Method Room Air 12/21/22 04:03 12/21/22 04:29 12/21/22 04:29 Temperature Pulse Rate 105 H 110 H Respiratory Rate 7 L Blood Pressure 143/80 H Pulse Oximetry 99 98 Oxygen Delivery Method 12/21/22 04:30 12/21/22 04:30 12/21/22 05:00 Temperature Pulse Rate 102 H Respiratory Rate 18 Blood Pressure 130/70 131/74 Pulse Oximetry 99 Oxygen Delivery Method 12/21/22 05:00 12/21/22 05:30 12/21/22 05:30 Temperature Pulse Rate 98 H 88 Respiratory Rate 15 14 Blood Pressure 134/74 Pulse Oximetry 98 97 Oxygen Delivery Method 12/21/22 06:00 12/21/22 06:00 12/21/22 06:30 Temperature Pulse Rate 87 Respiratory Rate 21 Blood Pressure 135/76 126/67 Pulse Oximetry 97 Oxygen Delivery Method 12/21/22 06:30 12/21/22 07:00 12/21/22 07:00 Temperature Pulse Rate 82 78 Respiratory Rate 19 21 Blood Pressure 122/77 Pulse Oximetry 96 97 Oxygen Delivery Method Room Air 12/21/22 07:30 12/21/22 07:30 Temperature Pulse Rate 80 Respiratory Rate 19 Blood Pressure 126/70 Pulse Oximetry 99 Oxygen Delivery Method <Sha Dyson, DO - Last Filed: 12/21/22 08:00> Orders Ordered: ED Orders 12/21/22 04:07 Complete Blood Count AUTO DIFF Stat Comprehensive Metabolic Panel Stat Lipase Stat Troponin & CK Cardiac Panel Stat 12/21/22 04:09 XR chest 1V Stat EKG-12 Lead Stat 12/21/22 06:00 Trop I [Troponin I] Stat EKG-12 Lead Stat 12/21/22 09:00 Troponin & CK Cardiac Panel Stat Nitroglycerin (Nitroglycerin 0.4 Mg Sl Tab) 0.4 mg SL [id number] PRN PRN Reason: Chest Pain Vital Signs Vital signs: Vital Signs - 8 hr 12/21/22 04:04 12/21/22 04:02 12/21/22 04:03 Temperature 97.8 F Pulse Rate 104 H 104 H Respiratory Rate 19 16 Blood Pressure 145/83 H 145/83 H Pulse Oximetry 100 98 Oxygen Delivery Method Room Air 12/21/22 04:03 12/21/22 04:29 12/21/22 04:29 Temperature Pulse Rate 105 H 110 H Respiratory Rate 7 L Blood Pressure 143/80 H Pulse Oximetry 99 98 Oxygen Delivery Method 12/21/22 04:30 12/21/22 04:30 12/21/22 05:00 Temperature Pulse Rate 102 H Respiratory Rate 18 Blood Pressure 130/70 131/74 Pulse Oximetry 99 Oxygen Delivery Method 12/21/22 05:00 12/21/22 05:30 12/21/22 05:30 Temperature Pulse Rate 98 H 88 Respiratory Rate 15 14 Blood Pressure 134/74 Pulse Oximetry 98 97 Oxygen Delivery Method 12/21/22 06:00 12/21/22 06:00 12/21/22 06:30 Temperature Pulse Rate 87 Respiratory Rate 21 Blood Pressure 135/76 126/67 Pulse Oximetry 97 Oxygen Delivery Method 12/21/22 06:30 12/21/22 07:00 12/21/22 07:00 Temperature Pulse Rate 82 78 Respiratory Rate 19 21 Blood Pressure 122/77 Pulse Oximetry 96 97 Oxygen Delivery Method Room Air 12/21/22 07:30 12/21/22 07:30 Temperature Pulse Rate 80 Respiratory Rate 19 Blood Pressure 126/70 Pulse Oximetry 99 Oxygen Delivery Method MDM - Chest Pain <Terri Valdivia MD - Last Filed: 12/21/22 07:53> Lab Data 12/21/22 04:07 12/21/22 04:07 Labs: Lab Results 12/21/22 12/21/22 12/21/22 Range/Units 04:07 04:07 06:00 WBC 9.7 (4.5-11.0) X10^3/uL RBC 5.40 (4.5-5.9) X10^6/uL Hgb 15.4 (13.5-17.5) g/dL Hct 44.8 (41-53) % MCV 82.8 (80-100) fL MCH 28.5 (26-34) PG MCHC 34.4 (30-36) % RDW 13.4 (11.6-14.8) % Plt Count 302 (150-400) X10^3/uL Neut % (Auto) 49.3 L (50-75) % Lymph % (Auto) 40.3 H (25-40) % Anderson % (Auto) 5.5 (3-14) % Eos % (Auto) 3.8 (2-4) % Baso % (Auto) 1.1 (0-2) % Neut # (Auto) 4800 (8249-3587) /uL Lymph # (Auto) 3900 (2635-3409) /uL Anderson # (Auto) 500 (0-900) /uL Eos # (Auto) 400 (0-450) /uL Baso # (Auto) 100 (0-100) /uL Sodium 137 (137-145) mmol/L Potassium 3.7 (3.4-5.1) mmol/L Chloride 104 (98-107) mmol/L Carbon Dioxide 25 (22-32) mmol/L BUN 11 (9-20) mg/dL Creatinine 0.74 (0.66-1.25) mg/dL Estimated GFR > 60 (>60) mL/min BUN/Creatinine Ratio 14.9 (6-22) Glucose 124 H (70-100) mg/dL Calcium 9.0 (8.4-10.2) mg/dL Total Bilirubin 0.3 (0.2-1.3) mg/dL AST 19 (17-59) IU/L ALT 24 (<50) IU/L Alkaline Phosphatase 83 (38-126) U/L Total Creatine Kinase 70 (55-170) U/L Troponin I < 0.012 < 0.012 (0.01-0.034) ng/mL Total Protein 7.3 (6.3-8.2) g/dL Albumin 4.4 (3.5-5.0) g/dL Globulin 2.9 (1.7-4.1) g/dL Albumin/Globulin Ratio 1.5 (1.0-2.8) Lipase 162 (23-300) U/L MDM Narrative Medical decision making narrative: CC: Chest pain Complicating co-morbidities: Tobacco abuse Data collected from: patient, Differential considered: Acute coronary syndrome, pulmonary embolism, aortic dissection, pneumothorax, viral syndrome, upper GI bleed Exam documented above, pertinent findings include: Pale and mildly diaphoretic no abdominal pain or reproducible chest pain Lab Test results independently reviewed as above. Pertinent findings: CBC is unremarkable Chemistries are reassuring Initial troponin is undetectable, 2nd troponin is undetectable Independently reviewed EKG sinus tachycardia at a rate of 99, normal intervals, normal axis, nonspecific STT wave changes inferiorly Repeat EKG at 6:18 a.m. in the morning shows sinus rhythm normal intervals normal axis nonspecific STT wave changes have resolved. 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 Denies nitroglycerin because he prefers to take no medications Re-evaluations:715 patient is re-evaluated. He still looks significantly fatigued somewhat pale no longer diaphoretic. He states that he is not having any substernal or epigastric pain and denies continued neck pain. He states that he is still quite tired. His heart score is low at 2 however the story is concerning, his initial presentation certainly was concerning, his 2nd EKG is improved from the 1st Patient would very much like to go home at this point he is entirely pain-free. We had an extended discussion regarding hospitalization versus 3rd troponin which is going home with close outpatient follow-up. He was able to do moderate amount of walking in the emergency department without any recurrent symptoms. With shared decision-making we decided that home discharge would be safe at this time with very low threshold for returning to the emergency department with any recurrent symptoms particularly any symptoms with activity. 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 Initial EKG had some nonspecific STT wave changes. Troponins 1 and 2 are unremarkable 2nd EKG is quite reassuring. He is had no recurrent pain. His heart score is 2, which is low and does not recommend hospitalization. Again with careful decision-making patient is discharge home and will return with any worsening symptoms and recognizes the importance of close cardiac follow-up as an outpatient with stress testing being recommended. Questions are answered and he is discharged home <Sha Dysno, - Last Filed: 12/21/22 08:00> Lab Data Labs: Lab Results 12/21/22 12/21/22 12/21/22 Range/Units 04:07 04:07 06:00 WBC 9.7 (4.5-11.0) X10^3/uL RBC 5.40 (4.5-5.9) X10^6/uL Hgb 15.4 (13.5-17.5) g/dL Hct 44.8 (41-53) % MCV 82.8 (80-100) fL MCH 28.5 (26-34) PG MCHC 34.4 (30-36) % RDW 13.4 (11.6-14.8) % Plt Count 302 (150-400) X10^3/uL Neut % (Auto) 49.3 L (50-75) % Lymph % (Auto) 40.3 H (25-40) % Anderson % (Auto) 5.5 (3-14) % Eos % (Auto) 3.8 (2-4) % Baso % (Auto) 1.1 (0-2) % Neut # (Auto) 4800 (8125-8652) /uL Lymph # (Auto) 3900 (5749-8426) /uL Anderson # (Auto) 500 (0-900) /uL Eos # (Auto) 400 (0-450) /uL Baso # (Auto) 100 (0-100) /uL Sodium 137 (137-145) mmol/L Potassium 3.7 (3.4-5.1) mmol/L Chloride 104 (98-107) mmol/L Carbon Dioxide 25 (22-32) mmol/L BUN 11 (9-20) mg/dL Creatinine 0.74 (0.66-1.25) mg/dL Estimated GFR > 60 (>60) mL/min BUN/Creatinine Ratio 14.9 (6-22) Glucose 124 H (70-100) mg/dL Calcium 9.0 (8.4-10.2) mg/dL Total Bilirubin 0.3 (0.2-1.3) mg/dL AST 19 (17-59) IU/L ALT 24 (<50) IU/L Alkaline Phosphatase 83 (38-126) U/L Total Creatine Kinase 70 (55-170) U/L Troponin I < 0.012 < 0.012 (0.01-0.034) ng/mL Total Protein 7.3 (6.3-8.2) g/dL Albumin 4.4 (3.5-5.0) g/dL Globulin 2.9 (1.7-4.1) g/dL Albumin/Globulin Ratio 1.5 (1.0-2.8) Lipase 162 (23-300) U/L MDM Narrative Medical decision making narrative: CC: Chest pain Complicating co-morbidities: Tobacco abuse Data collected from: patient, Differential considered: Acute coronary syndrome, pulmonary embolism, aortic dissection, pneumothorax, viral syndrome, upper GI bleed Exam documented above, pertinent findings include: Pale and mildly diaphoretic no abdominal pain or reproducible chest pain Lab Test results independently reviewed as above. Pertinent findings: CBC is unremarkable Chemistries are reassuring Initial troponin is undetectable, 2nd troponin is undetectable Independently reviewed EKG sinus tachycardia at a rate of 99, normal intervals, normal axis, nonspecific STT wave changes inferiorly Repeat EKG at 6:18 a.m. in the morning shows sinus rhythm normal intervals normal axis nonspecific STT wave changes have resolved. 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 Denies nitroglycerin because he prefers to take no medications Re-evaluations:715 patient is re-evaluated. He still looks significantly f atigued somewhat pale no longer diaphoretic. He states that he is not having any substernal or epigastric pain and denies continued neck pain. He states that he is still quite tired. His heart score is low at 2 however the story is concerning, his initial presentation certainly was concerning, his 2nd EKG is improved from the 1st Patient would very much like to go home at this point he is entirely pain-free. We had an extended discussion regarding hospitalization versus 3rd troponin which is going home with close outpatient follow-up. He was able to do moderate amount of walking in the emergency department without any recurrent symptoms. With shared decision-making we decided that home discharge would be safe at this time with very low threshold for returning to the emergency department with any recurrent symptoms particularly any symptoms with activity. 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 Initial EKG had some nonspecific STT wave changes. Troponins 1 and 2 are unremarkable 2nd EKG is quite reassuring. He is had no recurrent pain. His heart score is 2, which is low and does not recommend hospitalization. Again with careful decision-making patient is discharge home and will return with any worsening symptoms and recognizes the importance of close cardiac follow-up as an outpatient with stress testing being recommended. Questions are answered and he is discharged home Dr dyson: I had no clinical interaction with this patient. I accepted turned over in the morning however the patient did not want to stay for a repeat troponin. He was discharged by Dr. Valdivia prior to any interaction by myself. Discharge Plan Departure Patient Disposition: Home Clinical Impression: Chest pain Instructions: DI for Chest Pain Activity Restrictions/Additional Instructions: Thank you for coming in today Your initial presentation o'clock this morning and your story are relatively concerning for a true cardiac event. Your workup has actually been quite reassuring with your 1st and 2nd troponin levels (heart enzymes suggesting heart attack) were both negative. We discussed staying in the hospital versus discharge home at this point. We decided that discharge home is safe but would be you definitely need close outpatient follow-up and definitely need a cardiac stress test to make sure that there are that no heart concerns that need to be addressed before you have a heart attack. If you find that you are getting worse or develop any new symptoms, please feel free to return to the emergency department for further evaluation. Referrals: Mateo Carballo MD [Primary Care Provider] - Stand Alone Forms: Patient Portal/API
[2022-12-21 04:22] LABS: Add Manual Diff / Slide Review NO; Basophils Absolute Auto 100 /uL (0-100); Basophils Percent Auto 1.1 % (0-2); Eosinophils Absolute Auto 400 /uL (0-450); Eosinophils Percent Auto 3.8 % (2-4); Hematocrit 44.8 % (41-53); Hemoglobin 15.4 g/dL (13.5-17.5); Lymphocytes Absolute Auto 3900 /uL (1100-4500); Lymphocytes Percent Auto 40.3 % (25-40); Mean Corpuscular HGB Conc 34.4 % (30-36); Mean Corpuscular Hemoglobin 28.5 PG (26-34); Mean Corpuscular Volume 82.8 fL (80-100); Monocytes Absolute Auto 500 /uL (0-900); Monocytes Percent Auto 5.5 % (3-14); Neutrophils Absolute Auto 4800 /uL (1500-7000); Neutrophils Percent Auto 49.3 % (50-75); Platelet Count 302 X10^3/uL (150-400); Red Cell Distribution Width 13.4 % (11.6-14.8); White Blood Cell Count 9.7 X10^3/uL (4.5-11.0)
[2022-12-21 04:24] LABS: Alanine Aminotransferase 24 IU/L (<50); Albumin 4.4 g/dL (3.5-5.0); Albumin Globulin Ratio 1.5 (1.0-2.8); Alkaline Phosphatase 83 U/L (38-126); Aspartate Aminotransferase 19 IU/L (17-59); BUN Creatinine Ratio 14.9 (6-22); Bilirubin Total 0.3 mg/dL (0.2-1.3); Blood Urea Nitrogen 11 mg/dL (9-20); Carbon Dioxide 25 mmol/L (22-32); Chloride 104 mmol/L (98-107); Creatine Kinase 70 U/L (55-170); Estimated Glomerular Filt Rate > 60 mL/min (>60); Globulin 2.9 g/dL (1.7-4.1); Glucose 124 mg/dL (70-100); HEMOLYSIS 28 (0-50); Lipase 162 U/L (23-300); Potassium 3.7 mmol/L (3.4-5.1); Sodium 137 mmol/L (137-145); Total Protein 7.3 g/dL (6.3-8.2)
[2022-12-21 04:36] LABS: Troponin I < 0.012 ng/mL (0.01-0.034)
--- NOTE | 2022-12-21 04:40 | PC.NURSE ---
Pt refused nitro at this time. Pt reports he no longer has chest pain or tightness. Pt reports currently he feels dizzy and having bilateral neck tightness. Pt reports he normally does not take any medications and is weary about taking anything he has not before. Pt explained risks and benefits of taking nitro including possible side effects. Continues to decline at this time. Provider made aware.
[2022-12-21 06:43] LABS: Troponin I < 0.012 ng/mL (0.01-0.034)
--- NOTE | 2022-12-21 06:55 | PC.NURSE ---
Pt reports no chest pain or tightness at this time.
== END 2022-12-21 08:05 | disposition home or self-care (01) ==
PROVIDERS: Emergency Medicine; Emergency Provider Emergency Medicine; PCP Internal Medicine Geriatric Medicine
DX: R07.9 Chest pain, unspecified (principal); R00.0 Tachycardia, unspecified
CPT/HCPCS: 36415; 71045; 80053; 82550; 83690; 84484; 85025; 93005; 99283; 99284

== ENCOUNTER 2022-12-26 20:12 | Emergency (ER) | payer OTHER, MEDICAID, SELFPAY ==
[2022-12-26 20:16] VITALS: BP 160/94; PULSE 102; RESP 22; TEMP 36.8; O2SAT 100; BMI 30.8
[2022-12-26 20:41] VITALS: BP 129/78; PULSE 88; RESP 16; O2SAT 97
--- NOTE | 2022-12-26 20:45 | PC.NURSE ---
Patient started feeling better from previously taken ibuprofen and tylenol and asked if he could leave. Educated patient on staying to see provider, patient acknowledged but still wanted to go. Verbalized understanding to return should pain return, symptoms get worse, or change.
== END 2022-12-26 20:47 | disposition left against medical advice (07) ==
PROVIDERS: Emergency Provider Emergency Medicine; PCP Internal Medicine Geriatric Medicine
DX: K08.89 Other specified disorders of teeth and supporting structures (principal)
CPT/HCPCS: 99281

== ENCOUNTER 2022-12-28 12:26 | Emergency (ER) | payer OTHER, MEDICAID, SELFPAY ==
[2022-12-28 12:39] VITALS: BP 141/84; PULSE 99; RESP 16; TEMP 36.5; O2SAT 98; BMI 30.8
--- NOTE | 2022-12-28 14:18 | ED.DENTAL ---
HPI - Dental/Oral <Mayra French PA-C - Last Filed: 12/28/22 14:24> General Chief complaint: Dental/Oral Stated complaint: jaw pain Time Seen by Provider: 12/28/22 13:17 Source: EMS Mode of arrival: Ambulatory History of Present Illness HPI Narrative: 32-year-old male with dental problems presents to the ED with lower right-sided dental pain. Patient saw his dentist this morning, who examined his tooth, has scheduled a procedure for a chipped/cracked tooth in the lower right side. Patient states that on the way from the dentist office, he experienced excruciating nerve pain going into his jaw. He called his dentist who recommended 600 mg of ibuprofen along with Tylenol 3 times a day. Patient has also been started on antibiotics by his dentist. Patient states that he took the Tylenol and ibuprofen without any relief. It is unclear at what time the patient took this medication. Patient denies fever, chills, nausea, vomiting. Related Data Allergies Allergy/AdvReac Type Severity Reaction Status Date / Time aspirin Allergy Verified 12/28/22 12:44 ciprofloxacin [From Cipro] AdvReac Intermediate Anxiety Verified 12/28/22 12:44 metronidazole [From Flagyl] AdvReac Intermediate Anxiety Verified 12/28/22 12:44 Review of Systems <Mayra French PA-C - Last Filed: 12/28/22 14:24> Review of Systems ROS Unobtainable: All systems reviewed & are unremarkable except as noted in HPI and below Constitutional Constitutional: Denies chills, Denies fatigue, Denies fever(s), Denies frequent falls, Denies lethargy and Denies weakness Eyes Eyes: Denies change in vision, Denies eye discharge, Denies irritation and Denies loss of vision ENT Ears, Nose, Mouth, and Throat: Denies change in voice, Reports dental pain, Denies dizziness, Denies neck pain, Denies sore throat and Denies throat swelling Cardiovascular Cardiovascular: Denies chest pain, Denies irregular heart rhythm, Denies lightheadedness, Denies palpitations, Denies dyspnea, Denies dyspnea on exertion and Denies orthopnea Respiratory Respiratory: Denies cough, Denies dyspnea, Denies dyspnea on exertion and Denies wheezing Gastrointestinal Gastrointestinal: Denies abdominal pain, Denies change in bowel habits, Denies diarrhea, Denies nausea and Denies vomiting Genitourinary Genitourinary: Denies hematuria, Denies flank pain, Denies urinary incontinence and Denies urinary urgency Musculoskeletal Musculoskeletal: Denies back pain, Denies muscle weakness, Denies neck pain, Denies numbness and Denies tingling Integumentary/Breasts Skin/Breast: Denies pruritus, Denies erythema, Denies rash and Denies wounds Neurologic Neurologic: Denies behavioral changes, Denies confusion, Denies dizziness, Denies frequent falls, Denies loss of vision, Denies numbness, Denies tingling and Denies weakness Psychiatric Psychiatric: Denies anxiety, Denies behavioral changes, Denies confusion, Denies depression, Denies homicidal ideation and Denies suicidal ideation Endocrine Endocrine: Denies fatigue, Denies flushing and Denies palpitations Hematologic/Lymphatic Hematologic/Lymphatic: Denies easy bruising Allergic/Immunologic Allergic/Immunologic: Denies urticaria, Denies throat swelling and Denies wheezing Patient History <Mayra French PA-C - Last Filed: 12/28/22 14:24> Medical History Healthy adult Social History Smoking Status: Current every day smoker Smoking Status: Current every day smoker tobacco type: cigarettes alcohol intake frequency: holidays/special occasions only Substance Use Type: does not use Exam <Mayra French PA-C - Last Filed: 12/28/22 14:24> Narrative Exam Narrative: Const General:?cooperative, healthy appearing and comfortable [facility] Head:?normal to inspection Ears:?hearing grossly normal bilaterally Nose:?external nose normal Face and sinus:?normal facial exam and sinuses nontender Mouth:?oral mucosae normal; there is tenderness to palpation of lower right molar that patient's test diagnosed as cracked/shift. No periapical abscess or drainage noted Throat:?posterior oropharynx normal Eyes General:?appearance normal, both eyes and all related structures Neck Neck:?normal visual inspection and no lymphadenopathy noted Resp Effort & Inspection:?normal respiratory effort Auscultation:?clear to auscultation bilaterally Cardio Rate:?regular rate Rhythm:?regular rhythm Neuro General:?patient alert, patient awake and patient oriented x3 Initial Vital Signs Initial Vital Signs: Vital Signs Temperature 97.7 F 12/28/22 12:39 Pulse Rate 99 H 12/28/22 12:39 Respiratory Rate 16 12/28/22 12:39 Blood Pressure 141/84 H 12/28/22 12:39 Pulse Oximetry 98 12/28/22 12:39 Oxygen Delivery Method Room Air 12/28/22 12:39 <DO Gregory Claudio Last Filed: 12/28/22 14:41> Initial Vital Signs Initial Vital Signs: Vital Signs Temperature 97.7 F 12/28/22 12:39 Pulse Rate 99 H 12/28/22 12:39 Respiratory Rate 16 12/28/22 12:39 Blood Pressure 141/84 H 12/28/22 12:39 Pulse Oximetry 98 12/28/22 12:39 Oxygen Delivery Method Room Air 12/28/22 12:39 Course <Mayra French PA-C - Last Filed: 12/28/22 14:24> Vital Signs Vital signs: Vital Signs - 8 hr 12/28/22 12:39 Temperature 97.7 F Pulse Rate 99 H Respiratory Rate 16 Blood Pressure 141/84 H Pulse Oximetry 98 Oxygen Delivery Method Room Air <DO Gregory Claudio Last Filed: 12/28/22 14:41> Vital Signs Vital signs: Vital Signs - 8 hr 12/28/22 12:39 Temperature 97.7 F Pulse Rate 99 H Respiratory Rate 16 Blood Pressure 141/84 H Pulse Oximetry 98 Oxygen Delivery Method Room Air MDM - Dental/Oral <JAIME Pal Last Filed: 12/28/22 14:24> MDM Narrative Medical decision making narrative: 32-year-old male with dental problems presents to the ED with lower right-sided dental pain. It appears that patient's pain is due to the chipped/cracked tooth. Normal vitals. Recommend ibuprofen and Tylenol for pain control. Recommend continuing the antibiotics as prescribed by the dentist. Recommend follow-up with dentist for further pain control. ED return precautions discussed with patient. Patient verbalized understanding. Medical records reviewed: Yes Discharge Plan Departure Patient Disposition: Home Clinical Impression: Toothache Instructions: DI for Dental Pain Activity Restrictions/Additional Instructions: You were evaluated in the ED today for some dental pain. It appears that you are under the care of your dentist who you saw this morning. It is recommended that you call your dentist back regarding your symptoms and have them address as they think appropriate. You may continue to take Tylenol, ibuprofen for your symptoms. You may take 800 mg of ibuprofen 3 times a day along with 1000 mg of Tylenol 3 times a day. Return to the ED if you have fevers, chills, persistent vomiting. Referrals: Mateo Carballo MD [Primary Care Provider] - Stand Alone Forms: Patient Portal/API <Sha Dyson DO - Last Filed: 12/28/22 14:41> Cosign ED Attending Cosignature Attestation: Dr Dyson Co-Sign Statement: I was available for consultation during this patient's emergency department visit. This chart is signed by myself for administrative purposes only. I did not have direct contact with this patient during this visit. They were seen independently by the APC.
== END 2022-12-28 14:18 | disposition home or self-care (01) ==
PROVIDERS: Emergency Provider Student in an Organized Health Care Education/Training Program; PCP Internal Medicine Geriatric Medicine
DX: K08.89 Other specified disorders of teeth and supporting structures (principal)
CPT/HCPCS: 99281

== ENCOUNTER 2023-05-25 07:39 | Emergency (ER) | payer SELFPAY ==
[2023-05-25] VITALS (9 sets, daily range): BP systolic 121–147; BP diastolic 72–95; PULSE 68–96; RESP 16–32; TEMP 36.6; O2SAT 98–99
--- NOTE | 2023-05-25 07:49 | ED_ITS ---
HPI - Chest Pain General Chief Complaint: Chest Pain Stated Complaint: sharp pain in chest, weakness L arm Time Seen by Provider: 05/25/23 07:42 Source: patient, RN notes reviewed and old records reviewed Mode of arrival: Ambulatory Limitations: no limitations History of Present Illness HPI narrative: 32-year-old male with history of tobacco use who presents with complaint of chest pressure that started about 7:00 a.m. this morning describes it as substernal little bit to the left radiated up towards his neck, he felt some tightness in his arm and like it felt weak. He states he felt clammy and flushed. Mildly short of breath when this was occurring as well as anxious and that his heart was racing. Patient states symptoms lasted about 30-45 minutes and have since resolved. He states mild headache, no vision changes, no numbness, tingling or weakness any of his other extremities. Patient states he has not had similar symptoms in the past. He has 1 prior visit for chest pain in the past though. Does note last week he had a mild cold that lasted 3 or 4 days with some cold cough congestion symptoms. No fevers or chills. No cold cough symptoms currently. No swelling in extremities. Patient states no daily prescriptions. No known medical issues. No prior surgeries. States allergy to aspirin he does not recall the reaction he states it was from when he with a kid. He does use tobacco daily, occasional alcohol, no recreational drugs. Denies any cardiac, embolic, vascular or pulmonary family history. Related Data Allergies Allergy/AdvReac Type Severity Reaction Status Date / Time aspirin Allergy Verified 05/25/23 07:50 ciprofloxacin [From Cipro] AdvReac Intermediate Anxiety Verified 05/25/23 07:50 metronidazole [From Flagyl] AdvReac Intermediate Anxiety Verified 05/25/23 07:50 Review of Systems Review of Systems ROS Unobtainable: All systems reviewed & are unremarkable except as noted in HPI and below Patient History Medical History Healthy adult Social History Smoking Status: Current every day smoker Smoking Status: Current every day smoker tobacco type: cigarettes alcohol intake frequency: holidays/special occasions only Substance Use Type: does not use Exam Narrative Exam Narrative: GENERAL: Alert and oriented x three, male in mild distress HEENT: Head normocephalic, atraumatic, EOMI, pupils reactive, face symmetric, moist mucous membranes NECK: Supple, full range of motion CARDIOVASCULAR: Regular rate and rhythm without murmurs, rubs or gallops. No JVD. No rash or skin changes. 2+ pulses bilateral upper extremities. No edema bilateral upper extremities. No edema bilateral lower extremities. RESPIRATORY: Breath sounds equal bilaterally, no wheezes rales or rhonchi. No tachypnea or accessory muscle use. ABDOMEN: Soft, nontender. Normoactive bowel sounds all 4 quadrants. No guarding or rebound, rigidity, no mass : No CVA tenderness EXTREMITIES: Normal range of motion, no clubbing or edema. Neurovascularly intact NEUROLOGICAL: Cranial nerves II through XII grossly intact. Moving all extremities SKIN: Warm, dry, no petechiae, no rashes or lesions. Initial Vital Signs Initial Vital Signs: Vital Signs Temperature 98 F 05/25/23 07:48 Pulse Rate 96 H 05/25/23 07:48 Respiratory Rate 16 05/25/23 07:48 Blood Pressure 144/86 H 05/25/23 07:48 Pulse Oximetry 99 05/25/23 07:48 Oxygen Delivery Method Room Air 05/25/23 07:48 Scores HEART Score Heart Score history: Moderately Suspicious Heart Score EKG: Non-Specific repolarization disturbance Heart Score Age: < 45 years old Heart Score risk factors: No known risk factors Heart Score troponin: < or = to normal limit Heart Score Total: 2 Course Orders Ordered: ED Orders 05/25/23 07:51 XR chest 1V Stat 05/25/23 07:55 Complete Blood Count AUTO DIFF Stat Comprehensive Metabolic Panel Stat Lipase Stat Magnesium Stat PTT Partial Thromboplastin Alex Stat Prothrombin Time INR Stat Troponin & CK Cardiac Panel Stat 05/25/23 07:58 Covid-19 + FLU A/B + RSV - PCR Stat 05/25/23 10:05 Trop I [Troponin I] Stat 05/25/23 10:50 EKG-12 Lead Stat Vital Signs Vital signs: Vital Signs - 8 hr 05/25/23 07:48 05/25/23 07:48 05/25/23 08:00 Temperature 98 F Pulse Rate 96 H 79 Respiratory Rate 16 Blood Pressure 144/86 H 147/95 H Pulse Oximetry 99 99 Oxygen Delivery Method Room Air 05/25/23 08:00 05/25/23 08:30 05/25/23 08:30 Temperature Pulse Rate 74 73 Respiratory Rate 19 Blood Pressure 140/82 Pulse Oximetry 99 99 Oxygen Delivery Method 05/25/23 09:02 05/25/23 09:02 05/25/23 09:30 Temperature Pulse Rate 73 69 Respiratory Rate 23 20 Blood Pressure 144/77 H Pulse Oximetry 98 98 Oxygen Delivery Method 05/25/23 09:30 05/25/23 10:00 05/25/23 10:00 Temperature Pulse Rate 71 Respiratory Rate 24 Blood Pressure 128/72 132/80 Pulse Oximetry 98 Oxygen Delivery Method 05/25/23 10:30 05/25/23 10:36 05/25/23 10:36 Temperature Pulse Rate 70 68 Respiratory Rate 24 32 H Blood Pressure 123/80 Pulse Oximetry 99 98 Oxygen Delivery Method 05/25/23 11:00 05/25/23 11:00 Temperature Pulse Rate 68 Respiratory Rate 21 Blood Pressure 121/79 Pulse Oximetry 99 Oxygen Delivery Method MDM - Chest Pain Lab Data 05/25/23 07:55 05/25/23 07:55 Labs: Lab Results 05/25/23 05/25/23 05/25/23 Range/Units 07:55 07:58 10:05 WBC 6.8 (4.5-11.0) X10^3/uL RBC 5.39 (4.5-5.9) X10^6/uL Hgb 15.3 (13.5-17.5) g/dL Hct 44.9 (41-53) % MCV 83.4 (80-100) fL MCH 28.4 (26-34) PG MCHC 34.1 (30-36) % RDW 13.5 (11.6-14.8) % Plt Count 290 (150-400) X10^3/uL Neut % (Auto) 60.5 (50-75) % Lymph % (Auto) 30.0 (25-40) % [place] % (Auto) 4.7 (3-14) % Eos % (Auto) 2.6 (2-4) % Baso % (Auto) 2.2 H (0-2) % Neut # (Auto) 4100 (3276-4702) /uL Lymph # (Auto) 2100 (0154-2108) /uL [place] # (Auto) 300 (0-900) /uL Eos # (Auto) 200 (0-450) /uL Baso # (Auto) 200 H (0-100) /uL PT 10.8 (9.4-12.5) SECONDS INR 0.9 (0.9-1.3) APTT 34 (25.1-36.5) SECONDS Sodium 138 (137-145) mmol/L Potassium 3.9 (3.4-5.1) mmol/L Chloride 105 (98-107) mmol/L Carbon Dioxide 23 (22-32) mmol/L BUN 11 (9-20) mg/dL Creatinine 0.70 (0.66-1.25) mg/dL Estimated GFR > 60 (>60) mL/min BUN/Creatinine Ratio 15.7 (6-22) Glucose 108 H (70-100) mg/dL Calcium 9.1 (8.4-10.2) mg/dL Magnesium 2.0 (1.6-2.3) mg/dL Total Bilirubin 0.5 (0.2-1.3) mg/dL AST 18 (17-59) IU/L ALT 24 (<50) IU/L Alkaline Phosphatase 83 (38-126) U/L Total Creatine Kinase 82 (55-170) U/L Troponin I < 0.012 < 0.012 (0.01-0.034) ng/mL Total Protein 7.4 (6.3-8.2) g/dL Albumin 4.5 (3.5-5.0) g/dL Globulin 2.9 (1.7-4.1) g/dL Albumin/Globulin Ratio 1.6 (1.0-2.8) Lipase 108 (23-300) U/L SARS-CoV-2 (PCR) Negative (Negative) Influenza A (RT-PCR) Flu a negative (NEGATIVE) Influenza B (RT-PCR) Flu b negative (NEGATIVE) RSV (PCR) Negative (Negative) Imaging Data Chest x-ray: Radiologist's Impression: Close Chest X-Ray (Signed) Jonathan Hardy - 05/25/23 Chest X-Ray (Signed) Rob Lackey - 12/21/22 Chest X-Ray (Signed) Galdino Godinez - [birth year] [place] [id number] XRay Report Signed Patient: Galdino Martinez MR#: [id number] : 1990 Acct:[id number] Age/Sex: 32 / M Date of Service: 05/25/23 Loc: ED Accession Number: [id number] Procedure: XR chest 1V Ordering Provider: Zina Malcolm D.O. PROCEDURE: XR CHEST 1V INDICATIONS: chest pain TECHNIQUE: One view of the chest was acquired. COMPARISON: [facility], , XR CHEST 1V, 12/21/2022, 4:12. FINDINGS: Surgical changes and devices: None. Lungs and pleura: Lungs are clear. No pleural effusions or pneumothorax. Mediastinum: Mediastinal contours appear normal. Heart size is normal. Bones and chest wall: No suspicious bony lesions. Overlying soft tissues appear unremarkable. IMPRESSION: No acute cardiopulmonary abnormality is seen. Dictated by: Jonathan Hardy M.D. on 05/25/2023 at 9:03 Approved by: Jonathan Hardy M.D. on 05/25/2023 at 9:03 ECG Data Attestation: I personally reviewed and interpreted this ECG as follows: Prior ECG tracings: available for review Interpretation: Sinus rhythm rate 81 [place] 140 QRS of 100 QTC of 427. T-wave inverted lead [address] elevation appreciated. Patient appears to have little bit artifact in lateral leads but was not able to get rid of it even with repeated EKGs. Patient has prior from 12/21/2022 T-waves appear flat/upright on prior. [facility] Narrative Medical decision making narrative: 32-year-old male with history of tobacco abuse no other known cardiac risk factors who presents with complaint of left substernal chest pain radiated towards his neck with some arm weakness or discomfort. Patient states symptoms have resolved. EKG has some nonspecific change, patient's had chest x-ray, labs and COVID/influenza/RSV sent as he had a recent upper respiratory infection. Labs CBC shows normal white count, hemoglobin and platelets, coags are negative, CMP shows glucose of 108 otherwise normal renal function, LFTs and troponin is negative. Chest x-ray is negative for acute change COVID/influenza/RSV is negative. EKG nonspecific change with no acute/dynamic changes. On recheck patient continues to be symptom-free, heart score of 3. Repeat troponin is negatie. Repeat EKG shows nonspecific change T-wave inverted in lead 3, no other acute ST changes appreciated. No dynamic changes between today's EKGs. patient contniues to be asymptomatic and felt appropriate for discharge. He has seen Cardiology once before after episode of chest pain states they did not feel it was necessary to do workup at that time. Encouraged to follow up with primary care for recheck. Discharge Plan Departure Patient Disposition: Home Clinical Impression: Chest pain, Palpitations Instructions: DI for Chest Pain Activity Restrictions/Additional Instructions: Please follow up for recheck, if you have recurrent episodes of fast or racing heartbeat it maybe helpful to have a Holter monitor or ZIO patch at home to monitor your rhythm. Please return for recurrent chest pain, shortness of breath, lightheadedness or passing out, diaphoresis or sweatiness, persistent nausea or vomiting, new swelling of your extremities or other new or concerning changes. Referrals: Mateo Carballo MD [Primary Care Provider] - Stand Alone Forms: Patient Portal/API
[2023-05-25 08:02] LABS: Add Manual Diff / Slide Review NO; Basophils Absolute Auto 200 /uL (0-100); Basophils Percent Auto 2.2 % (0-2); Eosinophils Absolute Auto 200 /uL (0-450); Eosinophils Percent Auto 2.6 % (2-4); Hematocrit 44.9 % (41-53); Hemoglobin 15.3 g/dL (13.5-17.5); Lymphocytes Absolute Auto 2100 /uL (1100-4500); Mean Corpuscular HGB Conc 34.1 % (30-36); Mean Corpuscular Hemoglobin 28.4 PG (26-34); Mean Corpuscular Volume 83.4 fL (80-100); Monocytes Absolute Auto 300 /uL (0-900); Monocytes Percent Auto 4.7 % (3-14); Neutrophils Absolute Auto 4100 /uL (1500-7000); Neutrophils Percent Auto 60.5 % (50-75); Platelet Count 290 X10^3/uL (150-400); Red Blood Cell Count 5.39 X10^6/uL (4.5-5.9); Red Cell Distribution Width 13.5 % (11.6-14.8); White Blood Cell Count 6.8 X10^3/uL (4.5-11.0)
[2023-05-25 08:08] LABS: INR 0.9 (0.9-1.3); Prothrombin Time 10.8 SECONDS (9.4-12.5)
[2023-05-25 08:10] LABS: PTT Partial Thromboplastin Tim 34 SECONDS (25.1-36.5)
[2023-05-25 08:13] LABS: Alanine Aminotransferase 24 IU/L (<50); Albumin 4.5 g/dL (3.5-5.0); Albumin Globulin Ratio 1.6 (1.0-2.8); Alkaline Phosphatase 83 U/L (38-126); Aspartate Aminotransferase 18 IU/L (17-59); BUN Creatinine Ratio 15.7 (6-22); Bilirubin Total 0.5 mg/dL (0.2-1.3); Blood Urea Nitrogen 11 mg/dL (9-20); Calcium 9.1 mg/dL (8.4-10.2); Carbon Dioxide 23 mmol/L (22-32); Chloride 105 mmol/L (98-107); Creatine Kinase 82 U/L (55-170); Estimated Glomerular Filt Rate > 60 mL/min (>60); Globulin 2.9 g/dL (1.7-4.1); Glucose 108 mg/dL (70-100); HEMOLYSIS < 15 (0-50); Lipase 108 U/L (23-300); Potassium 3.9 mmol/L (3.4-5.1); Sodium 138 mmol/L (137-145); Total Protein 7.4 g/dL (6.3-8.2)
[2023-05-25 08:24] LABS: Troponin I < 0.012 ng/mL (0.01-0.034)
[2023-05-25 09:15] LABS: Influenza A - CEPHEID Flu A NEGATIVE (NEGATIVE); Influenza B - CEPHEID Flu B NEGATIVE (NEGATIVE); Respiratory Syncytial Virus Negative (Negative)
[2023-05-25 09:18] LABS: COVID-19 CEPHEID 4-PLEX PCR Negative (Negative)
[2023-05-25 10:42] LABS: Troponin I < 0.012 ng/mL (0.01-0.034)
== END 2023-05-25 11:16 | disposition home or self-care (01) ==
PROVIDERS: Emergency Provider Emergency Medicine; PCP Internal Medicine Geriatric Medicine
DX: R07.9 Chest pain, unspecified (principal); R00.2 Palpitations
CPT/HCPCS: 0241U; 36415; 71045; 80053; 82550; 83690; 83735; 84484; 85025; 85610; 85730; 93005; 99284